=== PATIENT | female | born 1965 | race Two or more races ===

== ENCOUNTER 2022-06-06 07:49 | Outpatient (REF) | payer OTHER, SELFPAY ==
[2022-06-06 11:03] LABS: Estimated Average Glucose 186 mg/dL; Hemoglobin A1c % 8.1 %
[2022-06-06 11:18] LABS: Cholesterol 164 mg/dL; HDL Cholesterol 43 mg/dL; LDL Cholesterol Calculated 90 mg/dl; Triglycerides 157 mg/dL
[2022-06-06 11:28] LABS: Thyroid Stimulating Hormone 0.85 uIU/mL (0.32-4.0)
== END 2022-06-06 07:50 | disposition home or self-care (01) ==
LOC: HO.10HDL 07:49
PROVIDERS: Visit Provider Nurse Practitioner Psychiatric/Mental Health
DX: Z79.899 Other long term (current) drug therapy (principal)
CPT/HCPCS: 36415; 80061; 83036; 84443